=== PATIENT | male | born 1970 | race Hispanic/Latino ===

== ENCOUNTER 2017-08-20 12:40 | Emergency (ER) | payer BC ==
--- NOTE | 2017-08-20 13:19 | RAD ---
RIGHT FOOT 1ST TOE 3 VIEWS: HISTORY: Trauma. Pain. COMPARISON: None. FINDINGS: There is a minimally displaced fracture involving the distal aspect of the distal phalanx of the 1st digit. IMPRESSION: First digit fracture as above. POS: [facility]
== END 2017-08-20 13:47 | disposition home or self-care (01) ==
LOC: SCSER 12:40
DX: S92.421A Displaced fracture of distal phalanx of right great toe, initial encounter for closed fracture (principal); W20.8XXA Other cause of strike by thrown, projected or falling object, initial encounter

== ENCOUNTER 2018-09-22 11:56 | Emergency (ER) | payer BC ==
[~2018-09-22 11:56] MED LIST: Iopamidol 370 76% 75 ML VIAL FS ONE
[2018-09-22] MEDS ORDERED: Dicyclomine 20 MG TAB ONE (12:29)
[2018-09-22] MEDS ORDERED: Metoclopramide HCl 10 MG/2 ML VIAL ONE (12:29)
[2018-09-22 12:36] LABS: #Basophils 0.1 thou/uL (0.0-0.2); #Eosinphils 0.3 thou/uL (0.0-0.7); #Lymphocytes 2.1 thou/uL (1.20-3.40); #Monocytes 0.8 thou/uL (0.11-0.59); #Neutrophils 6.2 thou/uL (1.40-6.50); %Basophils 1.1 % (0.0-1.0); %Eosinophils 2.7 % (0.0-10.0); %Lymphocytes 22.1 % (21.0-51.0); %Monocytes 8.4 % (0.0-10.0); %Neutrophils 65.6 % (42.0-75.0); Hemoglobin 16.8 g/dL (14.0-18.0); Mean Corpuscular HGB CONC 34.6 g/dL (32.0-36.0); Mean Corpuscular Hemoglobin 33.3 pg (27.0-31.0); Mean Corpuscular Volume 96.2 fL (78.0-98.0); Platelet Count 253 thou/uL (130-400); RBC Distribution Width 11.3 % (11.5-14.5); Red Blood Cell (RBC) Count 5.04 mill/uL (4.70-6.10); White Blood Cell (WBC) Count 9.4 thou/uL (4.8-10.8)
[2018-09-22 12:49] LABS: ALT (SGPT) 46 U/L (8-55); AST (SGOT) 28 U/L (5-34); Albumin 4.6 g/dL (3.5-5.0); Alkaline Phosphatase 73 U/L (40-150); Anion Gap 15 mmol/L (10-20); BUN (Urea Nitrogen) 20 mg/dL (8.9-20.6); Calc. Creatinine Clearance 0 mL/min (70-130); Calcium 9.4 mg/dL (7.8-10.44); Carbon Dioxide 26 mmol/L (22-29); Chloride 105 mmol/L (98-107); Estimated GFR-MDRD 51; Globulin 3.2 g/dL (2.4-3.5); Glucose 105 mg/dL (70-105); Lipase 29 U/L (8-78); Potassium 4.2 mmol/L (3.5-5.1); Protein, Total 7.8 g/dL (6.0-8.3); Sodium 142 mmol/L (136-145)
[2018-09-22] MEDS ORDERED: Ketorolac Tromethamine 30 MG/ML VIAL ONE (13:35)
[2018-09-22 13:49] LABS: Bilirubin Negative (Negative); Blood, Urine Large (Negative); Clarity Hazy (Clear); Glucose, Urine (Dipstick) Negative (Negative); Leukocyte Negative (Negative); Nitrite Negative (Negative); Protein, Urine (Dipstick) Trace mg/dL (Neg-Trace); Urobilinogen 0.2 mg/dL (Less than 2)
[2018-09-22 13:50] LABS: Bacteria/HPF Rare-Few HPF (None Seen); Squamous Epithelial None Seen HPF (0-3); WBC/HPF None Seen HPF (0-3)
--- NOTE | 2018-09-22 13:56 | CT ---
CT ABDOMEN AND PELVIS WITH IV CONTRAST: HISTORY: Left-sided abdominal pain that started on Monday. FINDINGS: There is delayed nephrogram phase of enhancement on the left with mild left hydronephrosis. A proxim al left ureteral calculus is visualized measuring approximately 6 mm x 4 mm. There is adjacent periu reteral stranding in this region as well as mild perinephric stranding seen on the left. Subcentimeter too small to characterize hypodense lesions are seen in each kidney. There is a larger hypodense lesion in the superior pole left kidney measuring 1.6 cm which demonstrates fluid attenuat ion suggestive of a cyst. There is minimal atelectasis at the left lung base. The liver, spleen, pancreas, bilateral adrenal g lands, abdominal aorta, and urinary bladder demonstrate a normal CT appearance. There is a very small fat density structure with a thin rim of increased density seen just anterior t o the mid descending colon which may represent small omental infarction versus epiploic appendagitis. The appendix is visualized and normal in caliber. There is colonic diverticulosis. No free fluid, fluid collection, or lymphadenopathy is seen in the abdomen or pelvis. The osseous structures have a normal appearance. IMPRESSION: 1. Partially obstructing proximal left ureteral calculus with associated periureteral and mild perin ephric stranding with mild left hydronephrosis. 2. Superior pole left renal cyst with subcentimeter too small to characterize hypodense lesions in e ach kidney. 3. Colonic diverticulosis. 4. Focus of epiploic appendagitis versus omental infarction anterior to the descending colon measuri ng approximately 1.[address] evidence of appendicitis. POS: [facility]
== END 2018-09-22 14:30 | disposition home or self-care (01) ==
LOC: SCSER 11:56
DX: N13.9 Obstructive and reflux uropathy, unspecified (principal); Z87.442 Personal history of urinary calculi
CPT/HCPCS: 36415; 74177; 80053; 81003; 81015; 83690; 85025; 87086; 96365; 96366; 96375; J1885; J2765; Q9967